=== PATIENT | male | born 1985 | race Caucasian/White ===

== ENCOUNTER 2019-01-20 06:05 | Inpatient (IN) | payer OTHER, BC ==
[2019-01-20] VITALS (12 sets, daily range): BP systolic 126–170; BP diastolic 69–104
[~2019-01-20] VITALS: Ht 190.5 cm; Wt 142.4 kg
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
[2019-01-20] MEDS ORDERED: LACTATED RINGERS 1,000 ML IV ONE ×2 (06:27→08:15)
[2019-01-20] MEDS ORDERED: TETANUS,DIPTH,PERTUSS P/F (BOOSTRIX) 0.5 ML VIAL IM ONE (06:30)
[2019-01-20 06:35] LABS: HEMOGLOBIN 15.2 G/DL (13.3-17.7); MEAN PLATELET VOLUME 11.5 FL (7.4-10.4); RED CELL DISTRIBUTION WIDTH 13.8 % (10.0-14.5); WHITE BLOOD COUNT 22.1 10^3/uL (4.3-11.0)
[2019-01-20] MEDS ORDERED: NS IV 1000 ML 1,000 ML IV ONE (06:41)
[2019-01-20 06:52] LABS: ALANINE AMINOTRANSFERASE 71 U/L (0-55); ALBUMIN 4.7 GM/DL (3.2-4.5); ALKALINE PHOSPHATASE 69 U/L (40-136); BILIRUBIN,DIRECT 0.2 MG/DL (0.0-0.3); BILIRUBIN,INDIRECT 0.3 MG/DL; BILIRUBIN,TOTAL 0.5 MG/DL (0.1-1.0); BUN/CREATININE RATIO 12; CALCIUM 9.2 MG/DL (8.5-10.1); CARBON DIOXIDE 22 MMOL/L (21-32); CHLORIDE 104 MMOL/L (98-107); CREATININE SERUM 1.08 MG/DL (0.60-1.30); GFR ESTIMATED > 60; GLUCOSE 116 MG/DL (70-105); POTASSIUM 3.9 MMOL/L (3.6-5.0); SODIUM 141 MMOL/L (135-145); TOTAL PROTEIN 7.5 GM/DL (6.4-8.2)
--- NOTE | 2019-01-20 07:00 | NUR ---
REPORT FROM REGINALD
[2019-01-20] MEDS ORDERED: fentaNYL INJECTION 100 MCG/2 ML AMP IVP ONE ×2 (07:30→09:15)
[2019-01-20] MEDS ORDERED: NS 100 ML (IVPB) BAG IV ONE (07:30)
[2019-01-20] MEDS ORDERED: IOHEXOL 350 MG/ML 100 ML (OMNIPAQUE 350) VIAL IV ONE (07:30)
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
--- NOTE | 2019-01-20 07:47 | NUR ---
PATIENT INFORMED THAT UA NEEDED.
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
[2019-01-20 08:54] LABS: BILIRUBIN,URINE NEGATIVE (NEGATIVE); CLARITY,URINE CLEAR; COLOR,URINE YELLOW; GLUCOSE, URINE (UA) NEGATIVE (NEGATIVE); KETONES,URINE 3+ (NEGATIVE); LEUKOCYTE ESTERASE ,URINE NEGATIVE (NEGATIVE); NITRITE,URINE NEGATIVE (NEGATIVE); PH,URINE 5 (5-9); PROTEIN,URINE 1+ (NEGATIVE); UROBILINOGEN,URINE NORMAL (NORMAL)
[2019-01-20 09:09] LABS: BACTERIA,URINE NEGATIVE /HPF; SQUAMOUS EPITHELIAL CELL,UR RARE /HPF
[2019-01-20 09:15] LABS: AMPHETAMINE SCREEN, URINE NEGATIVE (NEGATIVE); BARBITURATE SCREEN URINE NEGATIVE (NEGATIVE); BENZODIAZEPINES SCREEN URINE NEGATIVE (NEGATIVE); CANNABINOID SCREEN, URINE NEGATIVE (NEGATIVE); COCAINE SCREEN URINE NEGATIVE (NEGATIVE); METHADONE STAT NEGATIVE (NEGATIVE); METHAMPHETAMINE SCREEN URINE S NEGATIVE (NEGATIVE); OPIATE SCREEN URINE NEGATIVE (NEGATIVE); OXYCODONE STAT NEGATIVE (NEGATIVE); PROPOXYPHENE STAT NEGATIVE (NEGATIVE); TRICYCLIC ANTIDEPRESSANTS SCRE NEGATIVE (NEGATIVE)
[2019-01-20] MEDS ORDERED: oxyCODONE/APAP 5/325MG (PERCOCET 5) TABLET PO ONE (10:00)
--- NOTE | 2019-01-20 10:18 | NUR ---
KATIE THAPA admitted to room CU4-1, with an admitting diagnosis of PULMONARY CONTUSION/PNEUMO, on 01/20/19 from ER via BED, accompanied by STAFF.KATIE THAPA introduced to surroundings, call light, bed controls, phone, TV, temperature control, lights, meal times, smoking policy, visitor policy, side rail policy, bathrooms and showers. Patient Rights given to patient in the handbook. KATIE THAPA verbalizes understanding that [facility] is not responsible for the loss or damage to any personal effects or valuables that are kept in the patients posession during their hospitalization. The following Patient Care Plans were discussed with the PT: Discharge Planning, IMPAIRED GAS EXCHANGE,HIGH RISK BLEEDING, and ANXIETY. KATIE THAPA verbalizes understanding of Interdisciplinary Patient Education. Patient and family were informed about the Rapid Response Team and its purpose.
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
[2019-01-20] MEDS ORDERED: ONDANSETRON 4 MG/2 ML (SDV) Z0FRAN IV PRN (10:30)
[2019-01-20] MEDS: fentaNYL INJECTION 100 MCG/2 ML AMP IV PRN ×6 (10:41→22:38)
[2019-01-20] MEDS: LACTATED RINGERS 1,000 ML IV SCH ×2 (10:42→17:03)
[2019-01-20] MEDS: oxyCODONE/APAP 5/325MG (PERCOCET 5) TABLET PO PRN ×3 (11:08→18:46)
[2019-01-20] MEDS ORDERED: ASPI-789 PO (11:10)
[2019-01-20] MEDS ORDERED: POTA2TAB15 PO (11:10)
--- NOTE | 2019-01-20 11:12 | NUR ---
SPOKE WITH PATIENT (THERE WAS NO EXTERNAL MED HISTORY) TO MAKE THE MED REC. 03-19-2017 LISINOPRIL 40MG #30/, PT SAYS HE DOES NOT TAKE THIS HE SHOULD. OTC MEDICATIONS: EXCEDRIN MIGRAINE 2 TABS PRF HEADACHE POTASSIUM OTC 1 TAB PRF LEG CRAMPS
[2019-01-20] MEDS ORDERED: CATHETER FLUSH 10 ML SYR IV PRN (13:00)
[2019-01-20 13:14] LABS: BILIRUBIN,URINE NEGATIVE (NEGATIVE); CLARITY,URINE CLEAR; COLOR,URINE YELLOW; GLUCOSE, URINE (UA) NEGATIVE (NEGATIVE); KETONES,URINE 3+ (NEGATIVE); LEUKOCYTE ESTERASE ,URINE NEGATIVE (NEGATIVE); NITRITE,URINE NEGATIVE (NEGATIVE); PH,URINE 5 (5-9); PROTEIN,URINE 1+ (NEGATIVE); UROBILINOGEN,URINE NORMAL (NORMAL)
--- NOTE | 2019-01-20 13:27 | Diagnostic Imaging Report ---
INDICATION: Pneumonia. COMPARISON: Comparison made with prior examination from 01/20/2019. FINDINGS: The heart size is normal. There is a patchy right upper lobe infiltrate. There is no pleural effusion or pneumothorax. Mediastinum is unremarkable. IMPRESSION: Persistent patchy right upper lobe infiltrate. Dictated by: Dictated on workstation # [id number]
[2019-01-20 13:41] LABS: BACTERIA,URINE TRACE /HPF; SQUAMOUS EPITHELIAL CELL,UR RARE /HPF
[2019-01-20 13:42] LABS: GRANULAR CASTS,URINE RARE /LPF
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
[2019-01-20] MEDS ORDERED: RT-ALBUTEROL SULF 2.5 MG/3 ML PRE-MIX VIAL INH PRN (17:15)
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
[2019-01-20 18:06] LABS: HEMOGLOBIN 13.6 G/DL (13.3-17.7)
[2019-01-20 23:55] LABS: HEMOGLOBIN 12.7 G/DL (13.3-17.7)
[2019-01-21] VITALS (10 sets, daily range): BP systolic 108–161; BP diastolic 65–107
[2019-01-21] MEDS: oxyCODONE/APAP 5/325MG (PERCOCET 5) TABLET PO PRN ×5 (00:04→20:07)
[2019-01-21] MEDS: LACTATED RINGERS 1,000 ML IV SCH ×3 (00:06→17:04)
[2019-01-21] MEDS: fentaNYL INJECTION 100 MCG/2 ML AMP IV PRN ×3 (03:23→13:58)
[2019-01-21 03:33] LABS: BASOPHILS % (AUTO) 0 % (0-10); EOSINOPHILS # (AUTO) 0.1 10^3/uL (0.0-0.3); EOSINOPHILS % (AUTO) 2 % (0-10); HEMATOCRIT 39 % (40-54); LYMPHOCYTES # (AUTO) 1.5 X 10^3 (1.0-4.0); LYMPHOCYTES % (AUTO) 18 % (12-44); MEAN CORPUSCULAR HEMOGLOBIN 29 PG (25-34); MEAN CORPUSCULAR HGB CONC 34 G/DL (32-36); MEAN CORPUSCULAR VOLUME 86 FL (80-99); MONOCYTES % (AUTO) 12 % (0-12); NEUTROPHILS # (AUTO) 5.5 X 10^3 (1.8-7.8); NEUTROPHILS % (AUTO) 68 % (42-75); PLATELET COUNT 128 10^3/uL (130-400); RED CELL DISTRIBUTION WIDTH 13.7 % (10.0-14.5); WHITE BLOOD COUNT 8.1 10^3/uL (4.3-11.0)
[2019-01-21 03:48] LABS: ALANINE AMINOTRANSFERASE 49 U/L (0-55); ALBUMIN 3.8 GM/DL (3.2-4.5); ALKALINE PHOSPHATASE 57 U/L (40-136); BILIRUBIN,TOTAL 1.5 MG/DL (0.1-1.0); BUN/CREATININE RATIO 11; CALCIUM 8.6 MG/DL (8.5-10.1); CARBON DIOXIDE 27 MMOL/L (21-32); CHLORIDE 102 MMOL/L (98-107); GFR ESTIMATED > 60; GLUCOSE 105 MG/DL (70-105); MAGNESIUM 1.9 MG/DL (1.8-2.4); POTASSIUM 4.2 MMOL/L (3.6-5.0); SODIUM 136 MMOL/L (135-145); TOTAL PROTEIN 5.9 GM/DL (6.4-8.2)
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
--- NOTE | 2019-01-21 09:41 | Diagnostic Imaging Report ---
PROCEDURE: US Abdomen, limited. TECHNIQUE: Multiple Real-time grayscale images were obtained over the abdomen in various projections. INDICATION: Left kidney hematoma. COMPARISON: There are no prior ultrasound examinations available for comparison. FINDINGS: The recent CT abdomen/pelvis exam of 01/20/2019 noted enhancement along the superior margin of the left kidney. It was not certain whether this was related to a hematoma formation from an injury to the kidney or to a left adrenal mass. On this exam, the left kidney was visualized. The kidney measures 12.6 x 6.4 x 5.9 cm. There is no clear evidence for a mass or hematoma about the superior pole of the left kidney. The renal cortex seems to be intact and normal in echogenicity. There is no evidence for hydronephrosis. IMPRESSION: There is no evidence for an acute abnormality of the left kidney. In particular, there is no sign of a hematoma along the superior pole. The soft tissue density seen on the CT exam may well be related to enlargement of the left adrenal gland. If further evaluation of the adrenal gland is desired, then MRI would be recommended. These results were discussed with Dr. Garcia. Dictated by: Dictated on workstation # [id number]
--- NOTE | 2019-01-21 11:16 | Progress Note-Urology ---
Progress Note-Urology Progress Notes/Assess & Plan Progress/Assessment & Plan FEELS BETTER. NO GROSS HEMATURIA. WBC DOWN TO 8. H&H STABLE. RENAL US NO RENAL HEMATOMA, POSSIBLE ADRENAL MASS. RECOMMEND MRI Final Diagnosis LT RENAL CONTUSION AISHA ARTHUR MD Jan 21, 2019 11:16
--- NOTE | 2019-01-21 11:27 | NUR ---
OK TO TRANSFER PT TO [address]TH [address]LO[address] PER DR JUNIOR.
[2019-01-21] MEDS ORDERED: GADOBUTROL 15 MMOL/15 ML (GADAVIST) VIAL IV ONE (12:15)
[2019-01-21 12:50] LABS: HEMOGLOBIN 13.2 G/DL (13.3-17.7)
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
--- NOTE | 2019-01-21 13:35 | NUR ---
pt transferred to room 412 via bed w/ staff/personal belongings. report given to tanesha palacios, no questions/concerns voiced.
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
[2019-01-21 18:10] LABS: HEMOGLOBIN 12.6 G/DL (13.3-17.7)
[2019-01-21] MEDS: SENNA W/DOCUSATE (SENOKOT S) TABLET PO SCH (20:07)
[2019-01-21] MEDS ORDERED: DOCUSATE SODIUM 100 MG (COLACE) CAP PO SCH (21:00)
[2019-01-22 00:06] LABS: HEMOGLOBIN 12.1 G/DL (13.3-17.7)
[2019-01-22] MEDS: oxyCODONE/APAP 5/325MG (PERCOCET 5) TABLET PO PRN ×3 (02:01→15:34)
[2019-01-22] MEDS: LACTATED RINGERS 1,000 ML IV SCH ×3 (02:01→22:22)
[2019-01-22 04:52] VITALS: BP 145/82
[2019-01-22 05:58] LABS: HEMOGLOBIN 12.3 G/DL (13.3-17.7)
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
[2019-01-22 08:00] VITALS: BP 133/91
[2019-01-22] MEDS: SENNA W/DOCUSATE (SENOKOT S) TABLET PO SCH ×2 (08:17→19:53)
--- NOTE | 2019-01-22 09:26 | Progress Note-Urology ---
Progress Note-Urology Progress Notes/Assess & Plan Progress/Assessment & Plan NO RENAL ISSUES, WE WILL SEE PRN Final Diagnosis LT ADRENAL HGE AISHA ARTHUR MD Jan 22, 2019 09:26
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
[2019-01-22] MEDS: ENOXAPARIN 40 MG/0.4 ML (LOVENOX) SYR SC SCH (11:18)
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
--- NOTE | 2019-01-22 11:54 | Physical Therapy Daily Note ---
PT Daily Note-Current Subjective Pt. in bed and agrees to therapy. States he hasn't been able to walk due to low back and shoulder pain. Mental Status Patient Orientation: Normal For Age Transfers Therapy Code Descriptions/Definitions Functional [place] Measure: 0=Not Assessed/NA 4=Minimal Assistance 1=Total Assistance 5=Supervision or Setup 2=Maximal Assistance 6=Modified [place] 3=Moderate Assistance 7=Complete [place] Therapy Quality Codes: 6 Independent with activity with or without an assistive device 5 Patient requires set up or clean up by helper. Patient completes activity by themselves 4 Supervision or touching assist (CGA). [place] provide cues , steadying assist 3 The helper provides less than half the effort to complete the activity 2 The helper provides more than half the effort to complete the activity 1 Dependent. The helper does all the effort to complete an activity 7 Patient refused to complete or attempt activity 9 The patient did not perform the activity before the current illness or injury 88 Not attempted due to Medical conditions or safety concerns Transfers (B, C, W/C) (FIM): 4 Supine to/from Sit: 6 Sit to/from Stand: 4 Bed to/from Chair: 4 Weight Bearing Left Lower Extremity: Left Non Weight Bearing has knee immobilizer Treatments transfers Assessment Current Status: Good Progress, Fair Progress Pt. does well with transfers and maintains NWB status of L LE during bed to chair transfer. Pt. is only able to pivot foot on floor during transfer, unable to fully clear foot for ambulation, limited by low back and shoulder pain. Pt. up in chair post session with call light and all needs met. PT Short Term Goals Short Term Goals Time Frame: Jan 28, 2019 Transfers (B,C,W/C) (FIM): 5 Gait (FIM): 1 Gait Distance Comment: 20' Gait Level of Assist: 4 Gait Assistive Device: FWW PT Plan Treatment/Plan Treatment Plan: Continue Plan of Care Treatment Plan: Bed Mobility, Education, Functional Activity Chip, Functional Strength, Gait, Safety, Therapeutic Exercise, Transfers Treatment Duration: Jan 28, 2019 Frequency: 6 times per week Estimated Hrs Per Day: .25 hour per day Patient and/or Family Agrees t: Yes Time/GCodes Time In: 831 Time Out: 843 Total Billed Treatment Time: 12 Total Billed Treatment 1, FA 12' OLI BURNS PT Jan 22, 2019 11:54
[2019-01-22 12:00] VITALS: BP 130/81
[2019-01-22 15:30] VITALS: BP 135/76
[2019-01-22 19:23] VITALS: BP 138/77
[2019-01-22 23:55] VITALS: BP 153/92
[2019-01-23 03:47] VITALS: BP 148/101
[2019-01-23] MEDS: oxyCODONE/APAP 5/325MG (PERCOCET 5) TABLET PO PRN ×2 (05:44→11:43)
[2019-01-23 06:25] LABS: BASOPHILS % (AUTO) 0 % (0-10); EOSINOPHILS # (AUTO) 0.2 10^3/uL (0.0-0.3); EOSINOPHILS % (AUTO) 4 % (0-10); HEMATOCRIT 35 % (40-54); HEMOGLOBIN 11.8 G/DL (13.3-17.7); LYMPHOCYTES # (AUTO) 1.7 X 10^3 (1.0-4.0); LYMPHOCYTES % (AUTO) 25 % (12-44); MEAN CORPUSCULAR HEMOGLOBIN 29 PG (25-34); MEAN CORPUSCULAR HGB CONC 33 G/DL (32-36); MEAN CORPUSCULAR VOLUME 87 FL (80-99); MEAN PLATELET VOLUME 11.9 FL (7.4-10.4); MONOCYTES # (AUTO) 0.7 X 10^3 (0.0-1.0); MONOCYTES % (AUTO) 11 % (0-12); NEUTROPHILS # (AUTO) 4.1 X 10^3 (1.8-7.8); NEUTROPHILS % (AUTO) 61 % (42-75); PLATELET COUNT 130 10^3/uL (130-400); RED CELL DISTRIBUTION WIDTH 13.4 % (10.0-14.5); WHITE BLOOD COUNT 6.7 10^3/uL (4.3-11.0)
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
[2019-01-23] MEDS: LACTATED RINGERS 1,000 ML IV SCH (08:03)
[2019-01-23] MEDS: SENNA W/DOCUSATE (SENOKOT S) TABLET PO SCH (08:03)
[2019-01-23 08:17] VITALS: BP 156/94
[2019-01-23 08:50] VITALS: BP 156/94
[2019-01-23] MEDS ORDERED: RT-ALBUTEROL SULF 2.5 MG/3 ML PRE-MIX VIAL INH PRN (09:30)
--- NOTE | 2019-01-23 09:46 | Physical Therapy Daily Note ---
PT Daily Note-Current Subjective Patient agrees to PT. He reports he is going home today. Pain Numeric Pain Scale: 5-Moderate Pain Location: Right, Left Location Body Site: Knee Pain Description: Acute Mental Status Patient Orientation: Normal For Age Attachments: IV Transfers Therapy Code Descriptions/Definitions Functional [place] Measure: 0=Not Assessed/NA 4=Minimal Assistance 1=Total Assistance 5=Supervision or Setup 2=Maximal Assistance 6=Modified [place] 3=Moderate Assistance 7=Complete [place] Therapy Quality Codes: 6 Independent with activity with or without an assistive device 5 Patient requires set up or clean up by helper. Patient completes activity by themselves 4 Supervision or touching assist (CGA). [place] provide cues , steadying assist 3 The helper provides less than half the effort to complete the activity 2 The helper provides more than half the effort to complete the activity 1 Dependent. The helper does all the effort to complete an activity 7 Patient refused to complete or attempt activity 9 The patient did not perform the activity before the current illness or injury 88 Not attempted due to Medical conditions or safety concerns Transfers (B, C, W/C) (FIM): 6 Scootin Rollin Supine to/from Sit: 7 Sit to/from Stand: 6 Bed to/from Chair: 6 Weight Bearing Left Lower Extremity: Left Non Weight Bearing has knee immobilizer Gait Training Gait (FIM): 2 Distance (FIM): 5=356-11 ft Distance: 50' Gait Level of Assist: 6 Gait Assistive Device: FWW Patient will require FWW for home use for safety. PT educated patient and patient agrees. He is able to maintain NWB left LE without difficulty. Assessment Patient report no steps at home and declined attempt at this time. Patient to dismiss to home on this date. PT Short Term Goals Short Term Goals Time Frame: Jan 28, 2019 Transfers (B,C,W/C) (FIM): 5 Gait (FIM): 1 Gait Distance Comment: 20' Gait Level of Assist: 4 Gait Assistive Device: FWW PT Plan Treatment/Plan Treatment Plan: Discontinue PT, goals met Treatment Plan: Bed Mobility, Education, Functional Activity Chip, Functional Strength, Gait, Safety, Therapeutic Exercise, Transfers Treatment Duration: Jan 28, 2019 Frequency: 6 times per week Estimated Hrs Per Day: .25 hour per day Patient and/or Family Agrees t: Yes Time/GCodes Time In: 930 Time Out: 939 Total Billed Treatment Time: 9 Total Billed Treatment 1 visit GT 9 min GILBERTO MADRID PT Jan 23, 2019 09:46
[2019-01-23] MEDS ORDERED: METO-370 PO (11:14)
[2019-01-23] MEDS ORDERED: SENN-20 PO (11:14)
[2019-01-23] MEDS ORDERED: OXYC1TAB87 PO (11:14)
--- NOTE | 2019-01-23 11:16 | Discharge Inst-Simple/Standard ---
Discharge Inst-Standard Discharge Medications New, Converted or Re-Newed RX: Other Patient Instructions/Follow Up Plan of Care/Instructions/FU: Fwup with me in 1 week Activity as Tolerated: Yes Discharge Diet: No Restrictions ABIODUN KEANE DO Jan 23, 2019 11:16
[2019-01-23] MEDS ORDERED: RIVA10TA PO (11:17)
[2019-01-23] MEDS: ENOXAPARIN 40 MG/0.4 ML (LOVENOX) SYR SC SCH (11:42)
[2019-01-23 12:20] VITALS: BP 154/96
--- NOTE | 2019-01-23 12:32 | NUR ---
SHOULDER XRAY DONE.
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
--- NOTE | 2019-01-23 12:37 | Diagnostic Imaging Report ---
Indication: Left shoulder pain. Three views of left shoulder show no fracture, dislocation or other acute abnormalities. Impression: Negative left shoulder. Dictated by: Dictated on workstation # [id number]
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
--- NOTE | 2019-01-23 13:20 | NUR ---
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 RX AND INST AND VERBALIZED UNDERSTANDING.
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
[2019-01-23] MEDS ORDERED: RT-ALBUTEROL SULF 2.5 MG/3 ML PRE-MIX VIAL INH SCH (21:00)
== END 2019-01-23 13:20 | disposition home or self-care (01) | DRG 206 ==
LOC: EDUNIT# 06:05 → ER 06:07 → ICU 09:58 → 4TH 01-21 13:40
PROVIDERS: ADMIT Surgery; ATTEND Family Medicine
DX: S27.321A Contusion of lung, unilateral, initial encounter (principal); S27.0XXA Traumatic pneumothorax, initial encounter; E27.49 Other adrenocortical insufficiency; S32.028A Other fracture of second lumbar vertebra, initial encounter for closed fracture; S32.038A Other fracture of third lumbar vertebra, initial encounter for closed fracture; S40.012A Contusion of left shoulder, initial encounter; S82.192A Other fracture of upper end of left tibia, initial encounter for closed fracture; I10 Essential (primary) hypertension; R00.0 Tachycardia, unspecified; F10.129 Alcohol abuse with intoxication, unspecified; V48.5XXA Car driver injured in noncollision transport accident in traffic accident, initial encounter; Y90.6 Blood alcohol level of 120-199 mg/100 ml; Z23 Encounter for immunization
CPT/HCPCS: 36415; 70450; 71045; 71260; 72125; 73030; 73562; 74177; 74183; 76705; 80048; 80053; 80076; 80306; 80320; 81000; 83735; 85014; 85018; 85025; 85027; 86850; 86900; 86901; 90715; 93041; 94664; 94760

== ENCOUNTER → 2019-01-29 | Outpatient (CLI) | payer OTHER, BC ==
[~2019-01-29] MED LIST: ASPI-789 PO; METO-370 PO; OXYC1TAB87 PO; POTA2TAB15 PO; RIVA10TA PO; SENN-20 PO
== END ==
LOC: ORTHO 12:39
PROVIDERS: ATTEND Orthopaedic Surgery
DX: S32.028D Other fracture of second lumbar vertebra, subsequent encounter for fracture with routine healing (principal); S32.038A Other fracture of third lumbar vertebra, initial encounter for closed fracture; S40.012A Contusion of left shoulder, initial encounter; S82.192A Other fracture of upper end of left tibia, initial encounter for closed fracture; V48.5XXA Car driver injured in noncollision transport accident in traffic accident, initial encounter
CPT/HCPCS: 99213

== ENCOUNTER → 2019-02-09 | Outpatient (CLI) | payer BC, OTHER ==
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
== END ==
LOC: RAD 02-06 07:37
PROVIDERS: ATTEND Orthopaedic Surgery
DX: S83.512A Sprain of anterior cruciate ligament of left knee, initial encounter (principal); S82.292A Other fracture of shaft of left tibia, initial encounter for closed fracture; S80.12XA Contusion of left lower leg, initial encounter; V89.2XXA Person injured in unspecified motor-vehicle accident, traffic, initial encounter
CPT/HCPCS: 73721

== ENCOUNTER → 2019-02-09 | Outpatient (CLI) | payer OTHER, BC | LOC: ORTHO 09:44 | PROVIDERS: ATTEND Orthopaedic Surgery | DX: S32.028D Other fracture of second lumbar vertebra, subsequent encounter for fracture with routine healing (principal); S32.038A Other fracture of third lumbar vertebra, initial encounter for closed fracture; S40.012A Contusion of left shoulder, initial encounter; S82.192A Other fracture of upper end of left tibia, initial encounter for closed fracture; V48.5XXA Car driver injured in noncollision transport accident in traffic accident, initial encounter | CPT/HCPCS: 99213 ==